=== PATIENT | female | born 1970 | race Caucasian/White ===

== ENCOUNTER 2025-02-21 08:26 | Outpatient (CLI) | payer BC | END 2025-02-21 08:27 | disposition home or self-care (01) | LOC: CSHMRI 08:26 | PROVIDERS: ATTEND Orthopaedic Surgery | DX: M47.22 Other spondylosis with radiculopathy, cervical region (principal); M47.24 Other spondylosis with radiculopathy, thoracic region; M48.02 Spinal stenosis, cervical region | CPT/HCPCS: 72141; 72146 ==